=== PATIENT | male | born 1995 | race Caucasian/White ===

== ENCOUNTER 2017-11-04 14:27 | Emergency (ER) | payer BC ==
--- NOTE | 2017-11-04 14:13 | CT ---
EXAMINATION TYPE: CT brain wo con DATE OF EXAM: 11/04/2017 COMPARISON: Outside CT had from 436 days earlier HISTORY: Traumatic subdural hemorrhage without loss CT DLP: 1207 mGycm. Automated Exposure Control for Dose Reduction was Utilized. TECHNIQUE: CT scan of the head is performed without contrast. FINDINGS: There is persistent acute extra-axial probable epidural hemorrhage given biconcave shape versus curvilinear shape over left frontal region measuring up to 9 mm in thickness axial image 38 th is is slightly larger in size versus prior CTs were thickness up to 6 mm is present. Local mass effec t is seen. Inferior extension to superior temporal region is redemonstrated. The ventricles and sulc i are within normal limits in size. Air-fluid level in left maxillary sinus is slightly improved from prior. Patchy opacification posterior ethmoid sinuses is redemonstrated. The globes are intact bilat erally. IMPRESSION: Left-sided extra-axial suspected epidural hemorrhage is hyperdense and slightly larger v ersus prior exams suggesting acute on subacute hemorrhage. Local mass effect is present. No midline s hift is seen currently. Critical results communicated to ordering physician via telephone at time of dictation.
[2017-11-04 14:33] VITALS: RESP 18; TEMP 98
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
[2017-11-04 15:30] VITALS: BP 122/79; PULSE 55
== END 2017-11-04 15:25 | disposition short-term general hospital (02) ==
LOC: EC 14:27
DX: I62.01 Nontraumatic acute subdural hemorrhage (principal); I62.03 Nontraumatic chronic subdural hemorrhage; S22.42XA Multiple fractures of ribs, left side, initial encounter for closed fracture; H11.30 Conjunctival hemorrhage, unspecified eye; S00.83XA Contusion of other part of head, initial encounter; S40.812A Abrasion of left upper arm, initial encounter; V86.56XA Driver of dirt bike or motor/cross bike injured in nontraffic accident, initial encounter
CPT/HCPCS: 70450; 99285

== ENCOUNTER → 2017-11-11 | Outpatient (CLI) | payer BC ==
--- NOTE | 2017-11-11 15:41 | CT ---
EXAMINATION TYPE: CT brain wo con DATE OF EXAM: 11/11/2017 COMPARISON: 11/04/2017 HISTORY: subdural hematoma CT DLP: [address] of the brain was performed. Left frontal epidural hematoma is again noted and measures 6.4 mm in greatest thickness and 4.1 cm in length versus 8.8 mm x 5.0 cm previously. No evidence for shift. No additional areas of hemorrhage i dentified this time. There is no evidence for intracranial hemorrhage or sulcal effacement. No mass effects are seen. Left temporal parietal calvarial fracture is noted with minimal depression noted of 2 mm. Air-fluid l evel left maxillary sinus If symptoms persist consider MRI as clinically warranted. IMPRESSION: 1. Left frontal epidural hematoma slightly smaller in size although does persist. 2. Minimally depressed left temporal parietal calvarial fracture.
== END | disposition home or self-care (01) ==
LOC: RADCTMAIN 14:49
PROVIDERS: ATTEND Specialist
DX: S06.4X9D Epidural hemorrhage with loss of consciousness of unspecified duration, subsequent encounter (principal); S02.19XD Other fracture of base of skull, subsequent encounter for fracture with routine healing; S02.0XXD Fracture of vault of skull, subsequent encounter for fracture with routine healing
CPT/HCPCS: 70450

== ENCOUNTER → 2017-12-10 | Outpatient (CLI) | payer BC ==
--- NOTE | 2017-12-10 15:39 | CT ---
EXAMINATION TYPE: CT brain wo con DATE OF EXAM: 12/10/2017 COMPARISON: 11/11/2017 INDICATION: Skull fracture subsequent follow-up DLP: 03/15/2000 mGycm, Automated exposure control for dose reduction was used. CONTRAST: None CT of the brain is performed utilizing 3 mm thick sections through the posterior fossa and 3 mm thick sections through the remaining calvarium. Study is performed within 24 hours of arrival to the hosp ital. No abnormal hyperdensity is present to suggest an acute intracranial hemorrhage. Previous left epidur al hematoma is not evident on the current exam. No mass lesion is evident. No acute infarcts are evident. Ventricles and sulci are appropriate for the patient age. Very minimal mucosal thickening is within the left maxillary sinus. Remaining paranasal sinuses and m astoid air cells within the [id number] are clear. Patient's left orbital roof / skull base fracture is poorly visualized on the current examination and may have had some interval healing. No abnormal fluid collections are adjacent. No swelling is evide nt. Orbit remains intact. IMPRESSIONS: 1. No displaced fractures evident. There appears to be healing of the parietal fracture without dep ression. No expanding extra-axial CSF collections are hemorrhage are evident. Previous left epidural is resolved.
== END | disposition home or self-care (01) ==
LOC: RADCTMAIN 11:04
PROVIDERS: ATTEND Specialist
DX: S02 Fracture of skull and facial bones (principal); S06.4X9A Epidural hemorrhage with loss of consciousness of unspecified duration, initial encounter
CPT/HCPCS: 70450